=== PATIENT | female | born 1960 | race Caucasian/White ===

== ENCOUNTER 2018-02-12 13:59 | Outpatient (CLI) | payer OTHER ==
--- NOTE | 2018-02-13 13:42 | OP Clinic Progress Note ---
SUBJECTIVE: Patti Newton is a 57-year-old female who presents to the office today with complaints of a painful right great toenail. The patient states that she has had on and off ingrown toenails happening with most recent acute consistent pain at the outside border of her right great toenail since about November. The patient has denied any need to take any medications at this time and states that she just takes Advil at times for the pain in her toe at this time. The patient denies any allergies at this time. The patient does not admit to any fevers, chills, nausea, vomiting, shortness of breath or chest pain. The patient requests that she have the edge of the right great toenail removed today due to the pain. The patient admits having some drainage and redness recently but admits it is more of a clear drainage, I believe she said. OBJECTIVE: Vascular Exam: There is 2+ DP and PT pulses to the right foot. Capillary refill time was less than 3 seconds to the toes of the right foot. Mild edema to the right great toe. Musculoskeletal Exam: Pain on palpation noted to the right great toe lateral border. No other gross abnormalities noted. Dermatologic Exam: Slight erythema around the right great toe lateral border. Obvious signs of previous drainage and small eschar noted with evidence of paronychia. There are no other open lesions or abnormalities. Mild erythema noted. Neurological Exam: Light touch sensation intact of the toes of the right foot. ASSESSMENT: Onychocryptosis of the right great toenail lateral border. The risks and benefits of surgery to remove the lateral border of the right great toenail temporarily were discussed. The consent was discussed. Consent was given and written in the chart by the patient. PROCEDURE: Right great toenail lateral border partial avulsion. DESCRIPTION OF PROCEDURE: The right great toe was cleansed with an alcohol swab and injected with a total of 6 mL of a 1:1 mix of 2% lidocaine plain and 0.5% Marcaine plain to the right great toe. Once anesthesia was obtained, the toe was cleansed with Betadine for prep. The right great toenail lateral edge border was then resected and irritated and large tissue on the lateral border was removed. The wound site was evaluated and found to be free of any remaining nail in that lateral border. The wound site was flushed with a copious amount of normal saline. There was no purulence or malodor noted. The toe was then dressed with triple antibiotic ointment, 2 x 2 gauze, 4 x 4 gauze, 2-inch Jonathan, and 1-inch Coban. The patient was given instructions that she may remove the dressings tomorrow and may wash it daily, dry it, and apply antibiotic ointment and a Band-Aid daily for the next week. She will follow up in the [facility] in a week and is to call to make that appointment for follow up. PLAN: The patient, due to previous signs of infection, was given an antibiotic prescription for Augmentin 875/125 mg 1 tablet by mouth twice daily for 10 day. The patient will take this and we will follow up with her in a week. The patient had no further questions and was grateful to receive the instructions to go home with. JOHAN
== END 2018-02-12 14:00 ==
LOC: POD 13:59
PROVIDERS: ATTEND Podiatrist Foot & Ankle Surgery
DX: L60.0 Ingrowing nail (principal)
CPT/HCPCS: 11730